=== PATIENT | male | born 1995 | race Two or more races ===

== ENCOUNTER 2023-05-28 20:36 | Emergency (ER) | payer SELFPAY ==
[~2023-05-28] VITALS: Ht 172.7 cm; Wt 190.0 kg
[2023-05-28] MEDS ORDERED: NALOXONE HCL 1MG/ML 2ML SYRINGE IV ONE (20:37)
[2023-05-28] MEDS ORDERED: DEXTROSE (50%) 50ML SYRG IV ONE (20:37)
[2023-05-28] MEDS ORDERED: EPINEPHrine HCL 1 MG/10 ML SYRG IV ONE (20:37)
[2023-05-28] MEDS ORDERED: SODIUM BICARBONATE 8.4% INJ 50ML SYRINGE IV ONE (20:37)
[2023-05-28] MEDS: NALOXONE HCL 1MG/ML 2ML SYRINGE ONE (20:39)
[2023-05-28] MEDS: NALOXONE HCL 1MG/ML 2ML SYRINGE IV ONE (20:40)
[2023-05-28] MEDS: EPINEPHrine HCL 1 MG/10 ML SYRG ONE (20:57)
[2023-05-28 21:07] VITALS: BP 0/0; O2SAT 0
[2023-05-28 21:15] VITALS: PULSE 0; RESP 0
== END 2023-05-28 21:00 ==
LOC: EDBD 20:36 → ER 20:36
DX: I46.9 Cardiac arrest, cause unspecified (principal)
CPT/HCPCS: 31500; 92950; 99285; J0171; J2310; J7042